=== PATIENT | female | born 1975 ===

== ENCOUNTER 2017-02-11 19:48 | Inpatient (IN) | payer MEDICAID ==
[2017-02-11] MEDS ORDERED: Sodium Chloride 0.9% 1,000 ML IV SCH (20:45)
[2017-02-11 20:46] LABS: ADD MANUAL DIFF? NO
[2017-02-11 20:48] LABS: BASO # 0.04 K/mm3 (0.0-2.0); BASO % 0.6 % (0.0-3.0); EOS # 0.6 (0.0-0.7); EOS % 8.8 % (1.5-5.0); GRAN # 2.67 (1.4-6.5); GRAN % 36.7 % (50.0-68.0); HEMATOCRIT 32.6 % (36.0-48.0); LYMPH # 3.3 (1.2-3.4); LYMPH % 45.1 % (22.0-35.0); MEAN CELL VOLUME 88.3 fL (80.0-105.0); MEAN CORPUSCULAR HEMOGLOBIN 29.3 pg (25.0-35.0); MEAN CORPUSCULAR HGB CONC 33.1 g/dl (31.0-37.0); MEAN PLATELET VOLUME 9.7 fl (7.0-11.0); MONO # 0.6 (0.1-0.6); MONO % 8.8 % (1.0-6.0); PLATELET COUNT 265 10^3/uL (120.0-450.0); RED CELL DISTRIBUTION WIDTH 14.6 % (11.5-14.5); WHITE BLOOD COUNT 7.3 10^3/ul (4.5-11.0)
[2017-02-11 21:01] LABS: INR 0.99 (0.93-1.08)
[2017-02-11 21:08] LABS: ALB/GLOB RATIO 1.1 (1.1-1.8); ALKALINE PHOSPHATASE 92 U/L (38-133); ALT/SGPT 21 U/L (7-56); AMYLASE 116 U/L (35-125); AST/SGOT 24 U/L (15-39); BILIRUBIN,TOTAL 0.2 mg/dL (0.2-1.3); BLOOD UREA NITROGEN 15 mg/dL (7-21); CALCIUM 8.7 mg/dL (8.4-10.5); CARBON DIOXIDE 27 mmol/L (21-33); CHLORIDE 107 mmol/L (98-107); GFR AFRICAN-AMERICAN > 60; GLUCOSE,RANDOM 106 mg/dL (70-110); LIPASE 95 U/L (23-300); POTASSIUM 3.7 mmol/L (3.6-5.0); SODIUM 139 mmol/L (132-148); TOTAL PROTEIN 7.1 g/dL (5.8-8.3)
[2017-02-11 21:23] LABS: TROPONIN I < 0.01 ng/mL
--- NOTE | 2017-02-11 22:59 | CT ---
EXAM: CT Abdomen and Pelvis Without Intravenous Contrast CLINICAL HISTORY: 41 years old, female; Pain; Abdominal pain; Acute; Additional info: Abd pain TECHNIQUE: Axial computed tomography images of the abdomen and pelvis without intravenous contrast. This CT exam was performed using one or more of the following dose reduction techniques: automated exposure control, adjustment of the mA and/or kV according to patient size, and/or use of iterative reconstruction technique. Coronal and sagittal reformatted images were created and reviewed. COMPARISON: No relevant prior studies available. FINDINGS: Limitations: Lack of intravenous contrast. Streak artifact - mild. Lower thorax: No acute findings. ABDOMEN: Liver: Unremarkable. Gallbladder and bile ducts: No calcified stones. No ductal dilation. Pancreas: Unremarkable. No ductal dilation. Spleen: No splenomegaly. Adrenals: No mass. Kidneys and ureters: No renal calculi. No hydronephrosis. Stomach and bowel: Fluid within small bowel. Fluid/loose stool within colon. No definite mural thickening. No obstruction. Appendix: Normal caliber. No inflammation. PELVIS: Bladder: Unremarkable. No stones. Reproductive: Unremarkable as visualized. ABDOMEN and PELVIS: Intraperitoneal space: No significant fluid collection. No free air. Bones/joints: Postsurgical changes of spine. Melorheostosis of LEFT femur. Mild scoliosis. No acute fracture. Soft tissues: Unremarkable. Vasculature: Unremarkable. No abdominal aortic aneurysm. Lymph nodes: No pathologically enlarged lymph nodes. IMPRESSION: 1. Fluid/loose stool within bowel may suggest diarrhea illness. 2. Incidental/non-acute findings are described above.
--- NOTE | 2017-02-11 23:43 | ED PDOC ---
Arrival/HPI - General Chief Complaint: GI Problem Time Seen by Provider: 02/11/17 20:11 Historian: Patient - History of Present Illness Narrative History of Present Illness (Text): 02/11/17 23:41 Elidia Arceo is a 41 year old female who presents to the emergency department for evaluation of 1 day duration of abdominal pain associated with bloody stools. Denies any fever, chills, headache, dizziness, chest pain, shortness of breath, nausea, vomiting, diarrhea, urinary symptoms, or any other complaints at this time. Time/Duration: Other (1 day ) Symptom Onset: Gradual Severity Level: Mild Activities at Onset: Light Past Medical History - Provider Review Nursing Documentation Reviewed: Yes - Infectious Disease Hx of Infectious Diseases: None - Cardiac Hx Cardiac Disorders: No - Pulmonary Hx Respiratory Disorders: No - Neurological Hx Neurological Disorder: No - HEENT Hx HEENT Disorder: No - Renal Hx Renal Disorder: No - Endocrine/Metabolic Hx Endocrine Disorders: No - Hematological/Oncological Hx Blood Disorders: No - Integumentary Hx Dermatological Disorder: No - Musculoskeletal/Rheumatological Hx Musculoskeletal Disorders: No - Gastrointestinal Hx Gastrointestinal Disorders: No - Genitourinary/Gynecological Hx Genitourinary Disorders: No - Psychiatric Hx Depression: Yes Hx Substance Use: No - Surgical History Other/Comment: spinal fusion - Anesthesia Hx Anesthesia: Yes Hx Anesthesia Reactions: No Hx Malignant Hyperthermia: No Family/Social History - Physician Review Nursing Documentation Reviewed: Yes Family/Social History: No Known Family HX Smoking Status: Never Smoked Hx Alcohol Use: No Hx Substance Use: No Allergies/Home Meds Allergies/Adverse Reactions: Allergies oxycodone Allergy (Verified 11/19/15 00:12) RASH Home Medications: Home Meds Medication Instructions Recorded Confirmed Cyclobenzaprine [Flexeril] 10 mg PO PRN PRN 11/19/15 11/19/15 HYDROmorphone [Dilaudid] 4 mg PO PRN PRN 11/19/15 11/19/15 traMADol [Ultram] 50 mg PO PRN PRN 11/19/15 11/19/15 Review of Systems - Physician Review All systems were reviewed & negative as marked: Yes - Review of Systems Constitutional: Normal. absent: Fatigue, Fevers Respiratory: Normal. absent: SOB, Cough, Sputum Cardiovascular: Normal. absent: Chest Pain, Palpitations Gastrointestinal: Abdominal Pain, Hematochezia. absent: Diarrhea, Nausea, Vomiting, Hematemesis Genitourinary Female: Normal Neurological: Normal Psychiatric: Normal Physical Exam Vital Signs Reviewed: Yes Vital Signs Temp Pulse Resp BP Pulse Ox 02/12/17 03:00 66 16 99 02/12/17 01:01 69 16 97 02/11/17 21:56 67 14 111/69 100 02/11/17 19:54 97.9 F 97 H 18 92/62 L 98 Temperature: Afebrile Blood Pressure: Normal Pulse: Regular Respiratory Rate: Normal Appearance: Positive for: Well-Appearing, Non-Toxic, Comfortable Pain Distress: None Mental Status: Positive for: Alert and Oriented X 3 - Systems Exam Head: Present: Atraumatic, Normocephalic Pupils: Present: PERRL Conjunctiva: Present: Normal Mouth: Present: Moist Mucous Membranes Respiratory/Chest: Present: Clear to Auscultation, Good Air Exchange. No: Respiratory Distress, Accessory Muscle Use Cardiovascular: Present: Regular Rate and Rhythm, Normal S1, S2. No: Murmurs Abdomen: Present: Normal Bowel Sounds. No: Tenderness, Distention, Peritoneal Signs, Rebound, Guarding Upper Extremity: Present: Normal Inspection. No: Cyanosis, Edema Lower Extremity: Present: Normal Inspection. No: Edema Neurological: Present: GCS=15, CN II-XII Intact, Speech Normal, Motor Func Grossly Intact, Normal Sensory Function Skin: Present: Warm, Dry, Normal Color. No: Rashes Psychiatric: Present: Alert, Oriented x 3, Normal Insight, Normal Concentration Medical Decision Making ED Course and Treatment: 02/11/17 23:44 Impression: A 41 year old female who presents to the emergency department complaining of abdominal pain associated with bloody stools for past day. Plan: -- EKG -- CT abdomen/ pelvis -- Labs, cardiac enzymes -- CT abdomen pelvis -- IV Fluids -- POC urine -- Reassess and disposition Progress Notes: 02/12/17 01:54 EKG reviewed by me: NSR @ 85 bpm. Normal axis. normal interval. CT abdomen pelvis results reviewed FINDINGS: Limitations: Lack of intravenous contrast. Streak artifact - mild. Lower thorax: No acute findings. ABDOMEN: Liver: Unremarkable. Gallbladder and bile ducts: No calcified stones. No ductal dilation. Pancreas: Unremarkable. No ductal dilation. Spleen: No splenomegaly. Adrenals: No mass. Kidneys and ureters: No renal calculi. No hydronephrosis. Stomach and bowel: Fluid within small bowel. Fluid/loose stool within colon. No definite mural thickening. No obstruction. Appendix: Normal caliber. No inflammation. PELVIS: Bladder: Unremarkable. No stones. Reproductive: Unremarkable as visualized. ABDOMEN and PELVIS: Intraperitoneal space: No significant fluid collection. No free air. Bones/joints: Postsurgical changes of spine. Melorheostosis of LEFT femur. Mild scoliosis. No acute fracture. Soft tissues: Unremarkable. Vasculature: Unremarkable. No abdominal aortic aneurysm. Lymph nodes: No pathologically enlarged lymph nodes. IMPRESSION: 1. Fluid/loose stool within bowel may suggest diarrhea illness. 2. Incidental/non-acute findings are described above. 02/12/17 01:[address] Santa who is aware and agrees with the plan to observe patient at telemetry for lower GI hemorrhage. Accepts patient under hospitalist service. patient evaluated bedside by medical sales consultant. - Lab Interpretations Lab Results: 02/11/17 20:31 02/11/17 20:31 Lab Results 02/11/17 21:05: Blood Type Confirm O POSITIVE 02/11/17 20:31: Blood Type O POSITIVE, Antibody Screen Negative, BBK History Checked No verified bt 02/11/17 20:31: Sodium 139, Potassium 3.7, Chloride 107, Carbon Dioxide 27, Anion Gap 9 L, BUN 15, Creatinine 0.7, Est GFR ( Amer) > 60, Est GFR (Non -Af Amer) > 60, Random Glucose 106, Calcium 8.7, Total Bilirubin 0.2, AST 24, ALT 21, Alkaline Phosphatase 92, Lactate Dehydrogenase 440, Total Creatine Kinase 97, Troponin I < 0.01, Total Protein 7.1, Albumin 3.7, Globulin 3.4, Albumin/Globulin Ratio 1.1, Amylase 116, Lipase 95 02/11/17 20:31: PT 10.7, INR 0.99, APTT 25.0 02/11/17 20:31: WBC 7.3, RBC 3.69, Hgb 10.8 L, Hct 32.6 L, MCV 88.3, MCH 29.3, MCHC 33.1, RDW 14.6 H, Plt Count 265, MPV 9.7, Gran % 36.7 L, Lymph % (Auto) 45.1 H, Collier % (Auto) 8.8 H, Eos % (Auto) 8.8 H, Baso % (Auto) 0.6, Gran # 2.67 , Lymph # 3.3, Collier # 0.6, Eos # 0.6, Baso # 0.04 I have reviewed the lab results: Yes - RAD Interpretation Radiology Orders: 02/11/17 21:13 ABD & PELVIS W/O PO OR IV CONT [CT] Stat Mold Repairer: Radiologist - EKG Interpretation Interpreted by ED Physician: Yes Type: 12 lead EKG - Medication Orders Current Medication Orders: Acetaminophen (Tylenol 325mg Tab) 650 mg PO Q6H PRN PRN Reason: Fever >100.4 F Pantoprazole Sodium (Protonix 40mg Ivpb) 40 mg in 100 mls @ 20 mls/hr IVPB .Q5H [facility] Last Admin: 02/12/17 18:08 Dose: 20 mls/hr Sodium Chloride (Sodium Chloride 0.9%) 1,000 mls @ 150 mls/hr IV .[id number] [facility] Last Admin: 02/12/17 18:09 Dose: 150 mls/hr Tramadol HCl (Ultram) 50 mg PO Q6 PRN PRN Reason: Pain, moderate (4-7) Discontinued Medications Sodium Chloride (Sodium Chloride 0.9%) 1,000 mls @ 80 mls/hr IV .[id number] [facility] Last Admin: 02/11/17 23:17 Dose: 80 mls/hr Pantoprazole Sodium (Protonix Inj) 40 mg IVP ONCE STA Stop: 02/12/17 00:52 Last Admin: 02/12/17 01:43 Dose: 40 mg Pantoprazole Sodium (Protonix Inj) 40 mg IVP STAT STA Stop: 02/12/17 01:22 Last Admin: 02/12/17 01:45 Dose: 40 mg - Scribe Statement The provider has reviewed the documentation as recorded by the Asya Whyte Provider Attestation: Provider Scribe Attestation: All medical record entries made by the Philibbaljinder were at my direction and personally dictated by me. I have reviewed the chart and agree that the record accurately reflects my personal performance of the history, physical exam, medical decision making, and the department course for this patient. I have also personally directed, reviewed, and agree with the discharge instructions and disposition. Disposition/Present on Arrival - Present on Arrival Any Indicators Present on Arrival: No History of DVT/PE: No History of Uncontrolled Diabetes: No Urinary Catheter: No History of Decub. Ulcer: No History Surgical Site Infection Following: None - Disposition Have Diagnosis and Disposition been Completed?: Yes Diagnosis: Lower gastrointestinal bleeding Disposition: HOSPITALIZED Disposition Time: 01:00 Condition: FAIR
--- NOTE | 2017-02-12 01:37 | CP.PCM.HP ---
<NoramliyRod martinez - Last Filed: 02/12/17 01:33> History of Present Illness - History of Present Illness History of Present Illness: This Pt is a 41yo [place] F who has a PMHx of Spinal Fusion from severe scoliosis who is coming to the hospital for a 1d history of BRBPR. The patient states that she has had 3 bloody bowel movements that have filled the toilet bowl today. The first one was concerning, but she decided to come to the hospital after the second one because she started to feel palpitations and felt dizzy. This has never happened to her before. She denies any current SNELL, dizziness, double vision, Cp, Sob, abdominal pain, N/V/D, dysuria/freq/urg, blood per vagina, lower extremity pain/swelling, fevers/chills. The patient had her period one year ago, and has not had it since. Meds: Cycobenzaprine, Ibuprofen 800mg TID Allergies: Oxycodone Surgeries: Spinal Fusion 2014, Social: lives at home, takes care of young daughter, good social support FamHx: Mom DM, Father "stomach issues" and cancer, grandfather cancer, uncle cancer In the ED the patient had a HbG of 10.8 (one year ago 11.8). BUN WNL. patient would not allow us to pass NGT to assess for bleeding in stomach. BM was witnessed to fill toilet bowl with blood here in the ED. The patient was started on protonix drip; GI consult was placed to Dr. Vidal; patient will be admitted to telemetry. Present on Admission - Present on Admission Any Indicators Present on Admission: No History of DVT/PE: No History of Uncontrolled Diabetes: No Urinary Catheter: No Decubitus Ulcer Present: No Review of Systems - Review of Systems All systems: reviewed and no additional remarkable complaints except Past Patient History - Infectious Disease Hx of Infectious Diseases: None - Past Social History Smoking Status: Never Smoked - CARDIAC Hx Cardiac Disorders: No - PULMONARY Hx Respiratory Disorders: No - NEUROLOGICAL Hx Neurological Disorder: No - HEENT Hx HEENT Problems: No - RENAL Hx Chronic Kidney Disease: No - ENDOCRINE/METABOLIC Hx Endocrine Disorders: No - HEMATOLOGICAL/ONCOLOGICAL Hx Blood Disorders: No - INTEGUMENTARY Hx Dermatological Problems: No - MUSCULOSKELETAL/RHEUMATOLOGICAL Hx Musculoskeletal Disorders: No - GASTROINTESTINAL Hx Gastrointestinal Disorders: No - GENITOURINARY/GYNECOLOGICAL Hx Genitourinary Disorders: No - PSYCHIATRIC Hx Depression: Yes Hx Substance Use: No - SURGICAL HISTORY Other/Comment: spinal fusion - ANESTHESIA Hx Anesthesia: Yes Hx Anesthesia Reactions: No Hx Malignant Hyperthermia: No Meds Allergies/Adverse Reactions: Allergies Allergy/AdvReac Type Severity Reaction Status Date / Time oxycodone Allergy RASH Verified 11/19/15 00:12 Physical Exam - Constitutional Appears: Non-toxic - Head Exam Head Exam: ATRAUMATIC - Eye Exam Eye Exam: EOMI, Normal appearance, PERRL. absent: Scleral icterus Pupil Exam: PERRL - ENT Exam ENT Exam: Mucous Membranes Moist - Neck Exam Neck exam: Positive for: Full Rom. Negative for: Lymphadenopathy - Respiratory Exam Respiratory Exam: Clear to Auscultation Bilateral, NORMAL BREATHING PATTERN. absent: Rales, Rhonchi, Wheezes - Cardiovascular Exam Cardiovascular Exam: REGULAR RHYTHM, +S1, +S2 - GI/Abdominal Exam GI & Abdominal Exam: Hyperactive Bowel Sounds, Soft. absent: Normal Bowel Sounds, Organomegaly, Pulsatile Mass, Rebound, Rigid, Tenderness - Rectal Exam Rectal Exam: Deferred - Extremities Exam Extremities exam: Positive for: full ROM, normal inspection. Negative for: calf tenderness, pedal edema - Back Exam Back exam: NORMAL INSPECTION. absent: CVA tenderness (L), CVA tenderness (R) - Neurological Exam Neurological exam: Alert, CN II-XII Intact, Normal Gait, Oriented x3, Reflexes Normal - Psychiatric Exam Psychiatric exam: Normal Affect, Normal Mood - Skin Skin Exam: Warm Results - Vital Signs Recent Vital Signs: Last Vital Signs Temp 97.9 F 02/11/17 19:54 Pulse 69 02/12/17 01:01 Resp 16 02/12/17 01:01 BP 111/69 02/11/17 21:56 Pulse Ox 97 02/12/17 01:01 - Labs Result Diagrams: 02/11/17 20:31 02/11/17 20:31 Assessment & Plan - Assessment and Plan (Free Text) Assessment: 41yo F admitted for GI bleed GI Bleed -Protonix Drip -GI consult; Dr. Vidal placed; appreciate Recs -Telemetry -Type and Screen ordered; transfuse if Hemoglobin drops below 7 or continues to have gross melena -bleeding scan ordered, f/u results -d/c ibuprofen, as it can cause GI bleeding. Patient has been on 800mg TID for 2 years now -VSS stable; no tachycardia, BUN WNL; will continue to monitor CBC Q4H Proph protonix drip SCD; anticoag contraindicated due to active bleed NPO due to possible procedures case discussed and seen with. Dr Kiet Robison PGY1 Night Float Resident Decision To Admit - Pt Status Changed To: Hospital Disposition Of: Inpatient Admission - Admit Certification Admit to Inpatient:: After my assessment, the patient will require hospitalization for at least two midnights. This is because of the severity of symptoms shown, intensity of services needed, and/or the medical risk in this patient being treated as an outpatient. - . Bed Request Type: Telemetry Admitting Physician: Fortino Santa <Fortino Santa - Last Filed: 02/24/17 20:46> Results - Vital Signs Recent Vital Signs: Last Vital Signs Temp 98.6 F 02/14/17 12:58 Pulse 71 02/14/17 12:58 Resp 21 02/14/17 12:58 BP 128/87 02/14/17 12:58 Pulse Ox 100 02/14/17 11:19 - Labs Result Diagrams: 02/14/17 12:15 02/14/17 12:15 Attending/Attestation - Attestation I have personally seen and examined this patient.: Yes I have fully participated in the care of the patient.: Yes I have reviewed all pertinent clinical information: Yes
[2017-02-12] MEDS: Pantoprazole 40mg/100ml IVPB 40 MG/100 ML BAG IVPB SCH ×5 (03:56→21:30)
[2017-02-12] MEDS: Sodium Chloride 0.9% 1,000 ML IV SCH ×3 (04:10→21:30)
[2017-02-12 07:13] LABS: HEMATOCRIT 28.8 % (36.0-48.0); MEAN CELL VOLUME 87.8 fL (80.0-105.0); MEAN PLATELET VOLUME 9.8 fl (7.0-11.0); RED CELL DISTRIBUTION WIDTH 14.8 % (11.5-14.5); WHITE BLOOD COUNT 7.9 10^3/ul (4.5-11.0)
[2017-02-12 07:25] LABS: ALKALINE PHOSPHATASE 91 U/L (38-133); ALT/SGPT 26 U/L (7-56); AST/SGOT 22 U/L (15-39); BILIRUBIN,TOTAL 0.1 mg/dL (0.2-1.3); BLOOD UREA NITROGEN 12 mg/dL (7-21); CALCIUM 8.2 mg/dL (8.4-10.5); CARBON DIOXIDE 24 mmol/L (21-33); CHLORIDE 110 mmol/L (98-107); GFR AFRICAN-AMERICAN > 60; GLUCOSE,RANDOM 75 mg/dL (70-110); SODIUM 140 mmol/L (132-148); TOTAL PROTEIN 6.4 g/dL (5.8-8.3)
[2017-02-12 07:25] LABS: INR 1.01 (0.93-1.08)
--- NOTE | 2017-02-12 08:38 | CON ---
DATE: 02/12/2017 I examined the patient this morning. She is a 41-year-old female with a past medical history of a spinal fusion with scoliosis, admitted after having bloody-type bowel movement over a 1 -day time period. Apparently, she started feeling palpitations and felt mildly dizzy after she saw the blood in the toilet bowl. She initially had abdominal pain in the epigastric as well as the left lower quadrant which now has dissipated. She does not feel nausea. The patient also denied any previous episodes of hematemesis or rectal bleeding, dysphagia, severe esophageal reflux or epigastric pain. Note that the patient has been taking ibuprofen 800 mg 3 times daily for roughly 6 months or more. She has an ALLERGY TO OXYCODONE. At the current time point, the patient does not have any complaints. Last episode of blood passed per rectum was in the ER at time of admission. PHYSICAL EXAMINATION: VITAL SIGNS: I reviewed this patient's vital signs. HEENT: Noncontributory. LUNGS: Clear to auscultation. HEART: Regular rhythm. ABDOMEN: Significant for being soft. No tenderness elicited anywhere. She has normal bowel sounds. I reviewed this patient's laboratory data. H and H significant for with a platelet count of 265. INR is within normal limits. Chemistry noncontributory. Review of the CBC, on further notice, the patient has an irregular differential. Note the CBC differential. OVERALL ASSESSMENT: This is a 41-year-old female admitted with complaints of 1 day of rectal bleeding. Note that I reviewed the picture of the stool the patient took which appears to be melanotic in type. Although there may be some aspect of lower gastrointestinal bleed in this case, I think based on patient's history of ibuprofen 800 t.i.d. for nearly a half a year, best bet would probably be an ulcer in the gastrointestinal tract somewhere. I will therefore schedule the patient for upper endoscopy tomorrow if the patient is agreeable. At least for the current time point, continue on the Protonix as ordered. She is also on IV fluids. Note that she is scheduled for a bleeding scan; however, due to the sporadic type of bleeding that she has experienced, I would doubt the bleeding scan will be contributory. The upper endoscopy will be scheduled for roughly 9:00 tomorrow morning. Maintain the patient n.p.o. for now. Gucci Vidal DO, PhD cc: [id number] TT: 02/12/2017 08:37:48 Confirmation # [id number] Dictation # [id number] MTDD
[2017-02-12 10:46] LABS: HEMATOCRIT 26.7 % (36.0-48.0); MEAN CORPUSCULAR HGB CONC 32.6 g/dl (31.0-37.0); MEAN PLATELET VOLUME 9.7 fl (7.0-11.0); RED CELL DISTRIBUTION WIDTH 14.8 % (11.5-14.5); WHITE BLOOD COUNT 9.8 10^3/ul (4.5-11.0)
[2017-02-12 11:15] LABS: TROPONIN I < 0.01 ng/mL
--- NOTE | 2017-02-12 11:32 | CP.PCM.CON ---
<BryanJoeln - Last Filed: 02/12/17 12:34> History of Present Illness - History of Present Illness History of Present Illness: Critical Care Consult Note for Dr. Mullins CC: GI Bleed X 1 day HPI: This is a 41F with a PMH significant for chronic pain secondary to a spinal fusion. She has been taking 800mg Ibuprofen 3Xdaily for the past 5 months. Yesterday she reports a painful BM, which was grossly bloody with dark clots. She reports this is the first time she has had such an experience. She reports that she developed nausea after the hematochezia. She reports generalized abdominal pain. She denies fevers or chills at home however she does admit to dizziness and fatigue. PMH:See above PSH: Spinal Fusion 2014, Social: Denies tobacco, etoh, drugs Meds: Cycobenzaprine, Ibuprofen 800mg TID All: Oxycodone Review of Systems - Review of Systems All systems: reviewed and no additional remarkable complaints except Past Patient History - Infectious Disease Hx of Infectious Diseases: None - Past Social History Smoking Status: Never Smoked - CARDIAC Hx Cardiac Disorders: No - PULMONARY Hx Respiratory Disorders: No - NEUROLOGICAL Hx Neurological Disorder: No - HEENT Hx HEENT Problems: No - RENAL Hx Chronic Kidney Disease: No - ENDOCRINE/METABOLIC Hx Endocrine Disorders: No - HEMATOLOGICAL/ONCOLOGICAL Hx Blood Disorders: No - INTEGUMENTARY Hx Dermatological Problems: No - MUSCULOSKELETAL/RHEUMATOLOGICAL Hx Falls: No - GASTROINTESTINAL Hx Gastrointestinal Disorders: No - GENITOURINARY/GYNECOLOGICAL Hx Genitourinary Disorders: No - PSYCHIATRIC Hx Depression: Yes Hx Substance Use: No - SURGICAL HISTORY Hx Surgeries: Yes Other/Comment: Hx of spinal fusion from severe scoliosis - ANESTHESIA Hx Anesthesia: Yes Hx Anesthesia Reactions: No Hx Malignant Hyperthermia: No Meds Allergies/Adverse Reactions: Allergies Allergy/AdvReac Type Severity Reaction Status Date / Time oxycodone Allergy RASH Verified 11/19/15 00:12 - Medications Medications: Current Medications Acetaminophen (Tylenol 325mg Tab) 650 mg PO Q6H PRN PRN Reason: Fever >100.4 F Pantoprazole Sodium (Protonix 40mg Ivpb) 40 mg in 100 mls @ 20 mls/hr IVPB .Q5H REAL Last Admin: 02/12/17 06:43 Dose: Not Given Sodium Chloride (Sodium Chloride 0.9%) 1,000 mls @ 150 mls/hr IV .Q6H40M REAL Last Admin: 02/12/17 04:10 Dose: 150 mls/hr Tramadol HCl (Ultram) 50 mg PO Q6 PRN PRN Reason: Pain, moderate (4-7) Physical Exam - Constitutional Appears: Non-toxic, No Acute Distress - Head Exam Head Exam: ATRAUMATIC, NORMOCEPHALIC - Eye Exam Eye Exam: EOMI - ENT Exam ENT Exam: Mucous Membranes Moist - Respiratory Exam Respiratory Exam: Clear to Auscultation Bilateral, NORMAL BREATHING PATTERN - Cardiovascular Exam Cardiovascular Exam: REGULAR RHYTHM, +S1, +S2 - GI/Abdominal Exam GI & Abdominal Exam: Soft, Tenderness. absent: Distended, Firm, Guarding, Hernia, Rebound, Rigid - Extremities Exam Extremities exam: Positive for: normal inspection, pedal pulses present - Neurological Exam Neurological exam: Alert, Oriented x3 - Psychiatric Exam Psychiatric exam: Normal Affect, Normal Mood - Skin Skin Exam: Dry, Intact Additional comments: Large red georgina on medial proximal arm Results - Vital Signs Recent Vital Signs: Last Vital Signs Temp 98.9 F 02/12/17 06:00 Pulse 75 02/12/17 06:00 Resp 22 02/12/17 06:00 BP 120/90 02/12/17 06:00 Pulse Ox 97 02/12/17 06:00 - Labs Result Diagrams: 02/12/17 10:43 02/12/17 05:30 Labs: Laboratory Results - last 24 hr 02/12/17 02/12/17 02/12/17 05:30 05:30 06:30 WBC 7.9 RBC 3.28 L Hgb 9.5 L Hct 28.8 L MCV 87.8 MCH 29.0 MCHC 33.0 RDW 14.8 H Plt Count 238 MPV 9.8 PT 10.9 INR 1.01 Sodium 140 Potassium 4.0 Chloride 110 H Carbon Dioxide 24 Anion Gap 10 BUN 12 Creatinine 0.6 Est GFR ( Amer) > 60 Est GFR (Non-Af Amer) > 60 Random Glucose 75 Calcium 8.2 L Total Bilirubin 0.1 L AST 22 ALT 26 Alkaline Phosphatase 91 Lactate Dehydrogenase Total Creatine Kinase Troponin I Total Protein 6.4 Albumin 3.2 Globulin 3.1 Albumin/Globulin Ratio 1.0 L 02/12/17 02/12/17 10:43 10:43 WBC 9.8 D RBC 3.00 L Hgb 8.7 L Hct 26.7 L MCV 89.0 MCH 29.0 MCHC 32.6 RDW 14.8 H Plt Count 240 MPV 9.7 PT INR Sodium Potassium Chloride Carbon Dioxide Anion Gap BUN Creatinine Est GFR ( Amer) Est GFR (Non-Af Amer) Random Glucose Calcium Total Bilirubin AST ALT Alkaline Phosphatase Lactate Dehydrogenase 365 Total Creatine Kinase 74 Troponin I < 0.01 Total Protein Albumin Globulin Albumin/Globulin Ratio - Imaging and Cardiology CT scan - abdomen Status: Image reviewed by me, Report reviewed by me Assessment & Plan - Assessment and Plan (Free Text) Assessment: This is a 41F with a history of chronic high dose NSAID usage who presents with a GI Bleed. Patient is currently stable, non tachycardic, with stable blood pressure, appears comfortable. Patient denies bloody bowel movements today. If patient's hemodynamics change for the worse please call the ICU for re- evaluation. Recommend GI evaluation with possible scope. Recommend PPI, D/C NSAIDS, Continue IV fluids D/W Dr. Susanna Adams PGY-1 <Susanna JORDAN,Soy Manuel - Last Filed: 02/12/17 14:47> Meds - Medications Medications: Current Medications Acetaminophen (Tylenol 325mg Tab) 650 mg PO Q6H PRN PRN Reason: Fever >100.4 F Pantoprazole Sodium (Protonix 40mg Ivpb) 40 mg in 100 mls @ 20 mls/hr IVPB .Q5H COUNT [facility]CLUDES [facility] Last Admin: 02/12/17 06:43 Dose: Not Given Sodium Chloride (Sodium Chloride 0.9%) 1,000 mls @ 150 mls/hr IV .Q6H40M COUNT INCLUDES THE [facility] Last Admin: 02/12/17 04:10 Dose: 150 mls/hr Tramadol HCl (Ultram) 50 mg PO Q6 PRN PRN Reason: Pain, moderate (4-7) Results - Vital Signs Recent Vital Signs: Last Vital Signs Temp 98.5 F 02/12/17 12:00 Pulse 78 02/12/17 12:00 Resp 18 02/12/17 12:00 BP 104/69 02/12/17 12:00 Pulse Ox 97 02/12/17 06:00 - Labs Result Diagrams: 02/12/17 10:43 02/12/17 05:30 Labs: Laboratory Results - last 24 hr 02/12/17 02/12/17 02/12/17 05:30 05:30 06:30 WBC 7.9 RBC 3.28 L Hgb 9.5 L Hct 28.8 L MCV 87.8 MCH 29.0 MCHC 33.0 RDW 14.8 H Plt Count 238 MPV 9.8 PT 10.9 INR 1.01 Sodium 140 Potassium 4.0 Chloride 110 H Carbon Dioxide 24 Anion Gap 10 BUN 12 Creatinine 0.6 Est GFR ( Amer) > 60 Est GFR (Non-Af Amer) > 60 POC Glucose (mg/dL) Random Glucose 75 Calcium 8.2 L Total Bilirubin 0.1 L AST 22 ALT 26 Alkaline Phosphatase 91 Lactate Dehydrogenase Total Creatine Kinase Troponin I Total Protein 6.4 Albumin 3.2 Globulin 3.1 Albumin/Globulin Ratio 1.0 L 02/12/17 02/12/17 02/12/17 10:34 10:43 10:43 WBC 9.8 D RBC 3.00 L Hgb 8.7 L Hct 26.7 L MCV 89.0 MCH 29.0 MCHC 32.6 RDW 14.8 H Plt Count 240 MPV 9.7 PT INR Sodium Potassium Chloride Carbon Dioxide Anion Gap BUN Creatinine Est GFR ( Amer) Est GFR (Non-Af Amer) POC Glucose (mg/dL) 112 H Random Glucose Calcium Total Bilirubin AST ALT Alkaline Phosphatase Lactate Dehydrogenase 365 Total Creatine Kinase 74 Troponin I < 0.01 Total Protein Albumin Globulin Albumin/Globulin Ratio 02/12/17 11:39 WBC RBC Hgb Hct MCV MCH MCHC RDW Plt Count MPV PT INR Sodium Potassium Chloride Carbon Dioxide Anion Gap BUN Creatinine Est GFR ( Amer) Est GFR (Non-Af Amer) POC Glucose (mg/dL) 101 Random Glucose Calcium Total Bilirubin AST ALT Alkaline Phosphatase Lactate Dehydrogenase Total Creatine Kinase Troponin I Total Protein Albumin Globulin Albumin/Globulin Ratio Attending/Attestation - Attestation I have personally seen and examined this patient.: Yes I have fully participated in the care of the patient.: Yes I have reviewed all pertinent clinical information: Yes Notes (Text): 02/12/17 14:45 41 y/o F w/ Likely Upper GI bleed secondary to NSAID use and likely ulcers. No overt blood loss in the past 36 hrs. Kept NPO On PPI drip Awaiting Gi evaluation for EGD. Keep HGB >7 Platelets> 50 K Does claim to use 2400mg of Advil x 5 months . Currently hemodynamics are stable and patient is void of any CP, SOB or dizziness. Please call if patient worsens and needs ICU monitoring, cc time 55 min
--- NOTE | 2017-02-12 13:32 | NM ---
PROCEDURE: Nuclear medicine gastrointestinal bleeding scan. HISTORY: GI bleed COMPARISON: None available. TECHNIQUE: 4 cc of patient blood was withdrawn and mixed with 21 mCi of technetium ultra tagged. Images of the abdomen and pelvis were obtained in the anterior and posterior projection at 1 min intervals over a period of 45 min. FINDINGS: No abnormal extravasation of tracer was observed throughout the exam to indicate active bleeding within or outside the gastrointestinal tract. Physiologic activity was seen in the heart, liver, spleen and blood vessels. IMPRESSION: No evidence of active gastrointestinal bleeding.
--- NOTE | 2017-02-12 14:31 | CARD ---
APPROVED REPORT EKG Measurement Heart [id number] [place] [id number] <Conclusion> Normal sinus rhythm Normal ECG
--- NOTE | 2017-02-12 15:22 | CP.PCM.PN ---
Subjective - Date & Time of Evaluation Date of Evaluation: 02/12/17 Time of Evaluation: 10:33 - Subjective Subjective: Rapid response note Patient is a 41yo female with history of spinal fusion that was admitted for GI bleed for which a rapid response was called at 10:33am. Per nursing, patient attempted to stand up when she became lightheaded and almost passed out. Per nursing, she was unresponsive and an [employer] was called. On arrival, patient was alert and oriented x3, answering questions appropriately. Her vitals were as follows: BP: 98/65, HR 74bpm, RR 16, O2sat 99% on NC. EKG revealed sinus rhythm at 74bpm with no acute ST-T wave changes. Stat labs were ordered. NS IVF was administered at 150cc/hr. Primary team notified. Patient was hemodynamically stable. Denied chest pain, palpitations, SOB. Objective - Vital Signs/Intake and Output Vital Signs (last 24 hours): Temp Pulse Resp BP Pulse Ox 98.5 F 78 18 104/69 97 02/12/17 12:00 02/12/17 12:00 02/12/17 12:00 02/12/17 12:00 02/12/17 06:00 Intake and Output: 02/12/17 02/12/17 06:59 18:59 Intake Total 510 Output Total 100 Balance 410 - Medications Medications: Current Medications Acetaminophen (Tylenol 325mg Tab) 650 mg PO Q6H PRN PRN Reason: Fever >100.4 F Pantoprazole Sodium (Protonix 40mg Ivpb) 40 mg in 100 mls @ 20 mls/hr IVPB .Q5H [facility] Last Admin: 02/12/17 06:43 Dose: Not Given Sodium Chloride (Sodium Chloride 0.9%) 1,000 mls @ 150 mls/hr IV .Q6H40M [facility] Last Admin: 02/12/17 04:10 Dose: 150 mls/hr Tramadol HCl (Ultram) 50 mg PO Q6 PRN PRN Reason: Pain, moderate (4-7) - Labs Labs: 02/12/17 10:43 02/12/17 05:30 PT 10.9 Seconds (9.9-11.8) 02/12/17 06:30 INR 1.01 (0.93-1.08) 02/12/17 06:30 APTT 25.0 Seconds (23.7-30.8) 02/11/17 20:31 - Constitutional Appears: Non-toxic, No Acute Distress - Head Exam Head Exam: ATRAUMATIC, NORMAL INSPECTION, NORMOCEPHALIC - Eye Exam Eye Exam: EOMI, PERRL - ENT Exam ENT Exam: Mucous Membranes Moist - Respiratory Exam Respiratory Exam: Clear to Ausculation Bilateral. absent: Rales, Rhonchi, Wheezes - Cardiovascular Exam Cardiovascular Exam: RRR, +S1, +S2. absent: Gallop, JVD, Rubs, Murmur - GI/Abdominal Exam GI & Abdominal Exam: Soft. absent: Distended, Firm, Guarding, Rigid, Tenderness , Rebound - Extremities Exam Extremities Exam: Normal Inspection. absent: Tenderness - Neurological Exam Neurological Exam: Alert, Awake, Oriented x3 - Psychiatric Exam Psychiatric exam: Normal Affect, Normal Mood - Skin Skin Exam: Dry, Intact, Normal Color, Warm Assessment and Plan - Assessment and Plan (Free Text) Plan: 41yo female with history of scoliosis admitted for GI bleed. [employer] called at 10: 33am -EKG revealed sinus rhythm at 74bpm with no acute ST-T wave changes -Stat CBC, troponin -Hemodynamically stable -Alert and oriented x3 -NS IVF @ 150cc/hr -No overt GI bleed visible -Further treatment as per GI recs Patient seen and case discussed with attending, Dr. Adrianne Mullins
[2017-02-12 16:22] LABS: ADD MANUAL DIFF? NO
[2017-02-12 16:28] LABS: BASO # 0.02 K/mm3 (0.0-2.0); BASO % 0.2 % (0.0-3.0); EOS # 0.3 (0.0-0.7); EOS % 2.4 % (1.5-5.0); GRAN # 7.18 (1.4-6.5); GRAN % 62.5 % (50.0-68.0); HEMATOCRIT 25.1 % (36.0-48.0); LYMPH # 3.4 (1.2-3.4); LYMPH % 29.7 % (22.0-35.0); MEAN CELL VOLUME 88.4 fL (80.0-105.0); MEAN CORPUSCULAR HEMOGLOBIN 28.5 pg (25.0-35.0); MEAN CORPUSCULAR HGB CONC 32.3 g/dl (31.0-37.0); MEAN PLATELET VOLUME 9.5 fl (7.0-11.0); MONO # 0.6 (0.1-0.6); MONO % 5.2 % (1.0-6.0); PLATELET COUNT 246 10^3/uL (120.0-450.0); RED CELL DISTRIBUTION WIDTH 14.8 % (11.5-14.5); WHITE BLOOD COUNT 11.5 10^3/ul (4.5-11.0)
--- NOTE | 2017-02-12 16:41 | CARD ---
APPROVED REPORT EKG Measurement Heart [id number] [place] 122P16 [id number] <Conclusion> Normal sinus rhythm Normal ECG
[2017-02-12 19:47] LABS: ADD MANUAL DIFF? NO
[2017-02-12 19:55] LABS: BASO # 0.02 K/mm3 (0.0-2.0); BASO % 0.2 % (0.0-3.0); EOS # 0.3 (0.0-0.7); EOS % 2.9 % (1.5-5.0); GRAN # 5.45 (1.4-6.5); GRAN % 59.7 % (50.0-68.0); LYMPH # 2.9 (1.2-3.4); LYMPH % 31.4 % (22.0-35.0); MEAN CELL VOLUME 88.2 fL (80.0-105.0); MEAN CORPUSCULAR HEMOGLOBIN 29.4 pg (25.0-35.0); MEAN CORPUSCULAR HGB CONC 33.3 g/dl (31.0-37.0); MEAN PLATELET VOLUME 9.4 fl (7.0-11.0); MONO # 0.5 (0.1-0.6); MONO % 5.8 % (1.0-6.0); PLATELET COUNT 194 10^3/uL (120.0-450.0); RED CELL DISTRIBUTION WIDTH 14.9 % (11.5-14.5); WHITE BLOOD COUNT 9.1 10^3/ul (4.5-11.0)
[2017-02-12] MEDS ORDERED: Sodium Chloride 0.9% 500 ML IV STA (22:10)
[2017-02-13] MEDS: Pantoprazole 40mg/100ml IVPB 40 MG/100 ML BAG IVPB SCH ×5 (02:03→23:09)
[2017-02-13 06:46] LABS: ADD MANUAL DIFF? NO
[2017-02-13 07:06] LABS: BASO # 0.01 K/mm3 (0.0-2.0); BASO % 0.1 % (0.0-3.0); EOS # 0.4 (0.0-0.7); EOS % 5.7 % (1.5-5.0); GRAN # 3.45 (1.4-6.5); GRAN % 49.6 % (50.0-68.0); HEMATOCRIT 28.8 % (36.0-48.0); LYMPH # 2.6 (1.2-3.4); LYMPH % 37.3 % (22.0-35.0); MEAN CELL VOLUME 87.8 fL (80.0-105.0); MEAN CORPUSCULAR HEMOGLOBIN 28.4 pg (25.0-35.0); MEAN CORPUSCULAR HGB CONC 32.3 g/dl (31.0-37.0); MEAN PLATELET VOLUME 9.8 fl (7.0-11.0); MONO # 0.5 (0.1-0.6); MONO % 7.3 % (1.0-6.0); PLATELET COUNT 189 10^3/uL (120.0-450.0); RED CELL DISTRIBUTION WIDTH 14.7 % (11.5-14.5)
[2017-02-13 07:10] LABS: ALKALINE PHOSPHATASE 69 U/L (38-133); ALT/SGPT 28 U/L (7-56); AST/SGOT 18 U/L (15-39); BILIRUBIN,TOTAL 0.5 mg/dL (0.2-1.3); BLOOD UREA NITROGEN 14 mg/dL (7-21); CALCIUM 7.9 mg/dL (8.4-10.5); CARBON DIOXIDE 23 mmol/L (21-33); CHLORIDE 112 mmol/L (98-107); GFR AFRICAN-AMERICAN > 60; GLUCOSE,RANDOM 74 mg/dL (70-110); POTASSIUM 3.5 mmol/L (3.6-5.0); SODIUM 139 mmol/L (132-148); TOTAL PROTEIN 5.3 g/dL (5.8-8.3)
--- NOTE | 2017-02-13 07:19 | PN ---
DATE: 02/13/2017 I examined the patient this morning. She is a 41-year-old female admitted with a near syncopal episode and rectal bleeding. The patient had had 2 small episodes of rectal bleeding last night, a near syncopal episode when going from lying down to sitting and standing at bedside. This resolved nearly spontaneously. She has no complaints of abdominal pain or nausea. I reviewed this case with the nurse on the floor this morning. PHYSICAL EXAMINATION: VITAL SIGNS: I reviewed this patient's vital signs. HEENT: Noncontributory. LUNGS: Clear to auscultation. HEART: Regular rate and rhythm. ABDOMEN: Significant for being soft, nontender. Normal bowel sounds heard. I reviewed the patient's laboratory data. OVERALL ASSESSMENT: This is a 41-year-old female being evaluated for episodes of rectal bleeding which appear to be melanotic according to the patient's cellphone pictures. The patient appears to be hemodynamically stable at the current time point. In preparation for endoscopy, I discussed the procedure including risks, benefits and alternatives, including the risks of hemorrhage and perforation in surgery. The patient was agreeable to the procedure after understanding the discussion above in the presence of one of the nurses on 3 ER and the patient sign the consent for the procedure. At current time point, I will maintain the patient on her current medications. Further input after the endoscopy later on this morning. Gucci Vidal DO, PhD cc: [id number] TT: 02/13/2017 07:18:42 Confirmation # [id number] Dictation # [id number] HURLEY
--- NOTE | 2017-02-13 09:14 | CP.PCM.PN ---
<Jeff Brown - Last Filed: 02/13/17 12:24> Subjective - Date & Time of Evaluation Date of Evaluation: 02/13/17 Time of Evaluation: 09:11 - Subjective Subjective: Patient seen at bedside. She is hemodynamically stable. No melena overnight. Repeat Hgb 7.0. Patient was transfused 3 U PRBC. Hgb now 9.3. Patient will go for EGD this morning. She denies abd pain, n/v, hemoptysis, dizziness. Objective - Vital Signs/Intake and Output Vital Signs (last 24 hours): Temp Pulse Resp BP Pulse Ox 98.4 F 72 18 93/58 L 97 02/13/17 03:51 02/13/17 03:51 02/13/17 03:51 02/13/17 03:51 02/12/17 06:00 Intake and Output: 02/13/17 02/13/17 06:59 18:59 Intake Total 325 Balance 325 - Medications Medications: Current Medications Acetaminophen (Tylenol 325mg Tab) 650 mg PO Q6H PRN PRN Reason: Fever >100.4 F Pantoprazole Sodium (Protonix 40mg Ivpb) 40 mg in 100 mls @ 20 mls/hr IVPB .Q5H [facility] Last Admin: 02/13/17 02:03 Dose: 20 mls/hr Sodium Chloride (Sodium Chloride 0.9%) 1,000 mls @ 150 mls/hr IV .Q6H40M [facility] Last Admin: 02/12/17 21:30 Dose: 150 mls/hr Potassium Chloride (Potassium Chloride 10 Meq/100 Ml) 10 meq in 100 mls @ 100 mls/hr IVPB Q2H REAL Stop: 02/13/17 12:14 Tramadol HCl (Ultram) 50 mg PO Q6 PRN PRN Reason: Pain, moderate (4-7) Last Admin: 02/13/17 05:30 Dose: 50 mg - Labs Labs: 02/13/17 05:30 02/13/17 05:30 PT 10.9 Seconds (9.9-11.8) 02/12/17 06:30 INR 1.01 (0.93-1.08) 02/12/17 06:30 APTT 25.0 Seconds (23.7-30.8) 02/11/17 20:31 - Constitutional Appears: Non-toxic, No Acute Distress - Head Exam Head Exam: ATRAUMATIC, NORMOCEPHALIC - Eye Exam Eye Exam: EOMI, PERRL - ENT Exam ENT Exam: Mucous Membranes Moist - Neck Exam Neck Exam: Full ROM, Normal Inspection - Respiratory Exam Respiratory Exam: Clear to Ausculation Bilateral. absent: Rales, Rhonchi, Wheezes - Cardiovascular Exam Cardiovascular Exam: REGULAR RHYTHM, +S1, +S2 - GI/Abdominal Exam GI & Abdominal Exam: Soft. absent: Distended, Firm, Guarding, Tenderness - Extremities Exam Extremities Exam: Full ROM. 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 Patient is hemodynamically stable. EGD was done this morning which did not reveal gastric or duodenal ulcers. Ultimately the source of patient's bleeding is still not evident. GI Bleed - EGD did not reveal upper source. patient will require colonoscopy tomorrow. - continue protonix gtt - continue IVF - GI following - NPO for now Hx chronic back pain - tramadol 50gm PO q6hr PPX - on protonix gtt - SCD's <Allegra Mullins B - Last Filed: 02/13/17 16:25> Objective - Vital Signs/Intake and Output Vital Signs (last 24 hours): Temp Pulse Resp BP Pulse Ox 99.2 F 60 20 124/88 100 02/13/17 12:04 02/13/17 12:04 02/13/17 12:04 02/13/17 12:02/13/17 10:28 - Medications Medications: Current Medications Acetaminophen (Tylenol 325mg Tab) 650 mg PO Q6H PRN PRN Reason: Fever >100.4 F Pantoprazole Sodium (Protonix 40mg Ivpb) 40 mg in 100 mls @ 20 mls/hr IVPB .Q5H [facility] Last Admin: 02/13/17 13:17 Dose: 20 mls/hr Sodium Chloride (Sodium Chloride 0.9%) 1,000 mls @ 150 mls/hr IV .Q6H40M [facility] Last Admin: 02/12/17 21:30 Dose: 150 mls/hr Lactated Ringer's (Lactated Ringer's) 1,000 mls @ 75 mls/hr IV .[id number] [facility] Last Admin: 02/13/17 14:41 Dose: 75 mls/hr Tramadol HCl (Ultram) 50 mg PO Q6 PRN PRN Reason: Pain, moderate (4-7) Last Admin: 02/13/17 14:44 Dose: 50 mg - Labs Labs: PT 10.9 Seconds (9.9-11.8) 02/12/17 06:30 INR 1.01 (0.93-1.08) 02/12/17 06:30 APTT 25.0 Seconds (23.7-30.8) 02/11/17 20:31 Attending/Attestation - Attestation I have personally seen and examined this patient.: Yes I have fully participated in the care of the patient.: Yes I have reviewed all pertinent clinical information, including history, physical exam and plan: Yes Notes (Text): I have seen and examined the patient at bedside. Agree with the above note with the following additions/ exceptions: Briefly this is 41 year old female with history of chronic NSAID use for chronic back pain who got admitted for evaluation of GI bleeding. Patient had 3 episodes of melanotic stools prior to admission. Yesterday her Hb dropped and she was given 2 units of prbc. Today she feels well and denies any complaints. EGD was done today which did not reveal any GI source. Continue protonix drip. Discussed with Dr Vidal. Possible colonoscopy tomorrow. Upon discharge patient will follow up with PMD of choice. Dr Allegra Mullins
[2017-02-13] MEDS ORDERED: Propofol 10 mg/ml Inj (20 ML) ONE ×2 (09:35→09:46)
[2017-02-13] MEDS ORDERED: Peg-Electrolyte Oral Soln 4L (Golytely) PO ONE (10:07)
[2017-02-13] MEDS ORDERED: Lactated Ringer's 1,000 ML IV SCH (10:50)
[2017-02-13] MEDS: Sodium Chloride 0.9% 1,000 ML IV SCH (18:59)
[2017-02-13 22:20] LABS: HEMATOCRIT 28.4 % (36.0-48.0); MEAN CELL VOLUME 87.1 fL (80.0-105.0); MEAN CORPUSCULAR HEMOGLOBIN 29.4 pg (25.0-35.0); MEAN CORPUSCULAR HGB CONC 33.8 g/dl (31.0-37.0); MEAN PLATELET VOLUME 9.5 fl (7.0-11.0); RED CELL DISTRIBUTION WIDTH 14.6 % (11.5-14.5); WHITE BLOOD COUNT 10.1 10^3/ul (4.5-11.0)
[2017-02-14] MEDS: Pantoprazole 40mg/100ml IVPB 40 MG/100 ML BAG IVPB SCH (05:30)
--- NOTE | 2017-02-14 08:43 | PN ---
DATE: 02/14/2017 I examined the patient this morning. She is a 41-year-old female admitted with complaints of rectal bleeding. As indicated previously, the upper endoscopy yesterday was negative for an acute bleeding source. The patient was subsequently scheduled for a colonoscopy today at 9:30. I reviewed this issue with the patient this morning, as well as the nurse on the floor. The patient indicated that she had significant difficulty with the colon prep and did not finish the whole thing - roughly half, and refused to finish the rest. She has no abdominal pain this morning. No chest pain. Did notice a significant amount of blood during the prep. As of now, the effectiveness of the colon prep is dubious. PHYSICAL EXAMINATION: VITAL SIGNS: I reviewed this patient's vital signs. The physical examination is noncontributory. ASSESSMENT: This is a patient with new onset rectal bleeding, negative upper endoscopy to the level of the second portion of duodenum. Colonoscopy scheduled today. In a review of the case with the nurses, a couple of tap water enemas until clear was suggested. I doubt whether the patient will be agreeable to this. Nursing indicated that the patient has significant anxiety, felt that the colon prep was inducing more bleeding, and at this point in time, it is questionable how effective the residual prep that she had taken is going to be when I put the scope in later on this morning. In addition, I discussed the risks, benefits, and alternatives of the procedure including risks of hemorrhage, perforation, and surgery. The patient was fully cognizant of the procedure and agreed to have the procedure done, and will sign the consent later on this morning when she comes down to same-day surgery. Gucci Vidal DO, PhD cc: [id number] TT: 02/14/2017 08:43:09 Confirmation # [id number] Dictation # [id number] kriss HURLEY
[2017-02-14 09:37] VITALS: O2SAT 100
[2017-02-14] MEDS ORDERED: Propofol 10 mg/ml Inj (20 ML) ONE (09:43)
[2017-02-14] MEDS ORDERED: Sodium Chloride 0.9% 1,000 ML IV SCH (10:15)
--- NOTE | 2017-02-14 12:02 | PN ---
DATE: 02/14/2017 ADDENDUM: I examined the patient early this earlier this morning. Progress note dictated earlier this morning. This is an addendum, which is dictated after her attempted colonoscopy procedure on Friday. The patient had an attempted colonoscopy procedure after a GoLYTELY prep and tap water enemas this morning. The prep was grossly inadequate. Insertion of scope was to the level of the proximal transverse colon near the hepatic flexure. In all segments, there was a significant amount of clots and solid stool. There was no active bleeding noted. It was very hard to clear the mucosa due to the extensive amount of residua noted above. However, the visualized mucosa appeared to be normal. There were some internal hemorrhoids. The scope was withdrawn and the patient tolerated the procedure well and was evaluated afterward in PACU. I reviewed the colonoscopy results with Dr. Mary Alice Mullins, the patient's medical attending. I reviewed the results of the procedure with the patient, who was obviously disturbed that the procedure could not be performed adequately even though she was aware that her compliance with the intake of a colon prep was poor. There is an issue that she may request discharge to go to [facility] over the weekend since that is where she lives. I emphasized to the patient that a repeat colonoscopy attempt after another GoLYTELY prep plus possibly some addition should be accomplished as soon as possible, preferably within 2-3 days, maximum 4. At least, for now, performance of the procedure over the weekend would be problematic and schedule on Friday and Friday will be problematic also. Scheduling is a major issue at the hospital. I spent a substantial amount of time, roughly at least 40 minutes, discussing the procedure results, as well as the prognosis in this particular case. Note that I did explain to her that the area that was not visualized was the ascending colon and that most likely was the area where the bleeding originated. There is also a possibility that there could be a distal small bowel lesion, in which case the colonoscopy will probably be noncontributory. In that particular case, a video capsule may be warranted. If the patient was in the local vicinity of [facility], she was advised to touch base with them as soon as possible over the weekend, possibly, at the latest, on Friday to facilitate her repeat colonoscopy attempt. If the patient does not go home over the weekend, she was advised to come back to the Emergency Room and the procedure could be performed emergently at [facility] after another colon prep attempt. I am not sure what the patient will decide at this point in time. She will discuss the issue with Dr. Allegra Mullins, the medical attending, after she returns to the floor. As indicated above, I expressed the urgency of a repeat colon prep, which is absolutely critical to making a diagnosis in this particular case. Again, this should be accomplished as soon as possible, whether it is here or at [facility] after she returns to the [place]. The final decision will be up to the patient after her discussion with Dr. Mary Alice Mullins later on this morning. At the current time point, the patient is not currently bleeding. A repeat H and H is pending for this morning. The patient currently has no hematemesis, rectal bleeding or abdominal pain. The patient understood the discussion I had with her regarding the urgency of procedure. I reviewed the dietary suggestions I had if she decides return to the [place]. Dietary intake should probably consist only of liquid diet that is either clear or full liquids over the weekend to allow possible healing of whatever lesion bled plus intake of a proton pump inhibitor. This will also facilitate a better colon prep when she has her procedure next week. Gucci Vidal DO, PhD cc: [id number] TT: 02/14/2017 12:01:28 Confirmation # [id number] Dictation # [id number] elder HURLEY
[2017-02-14 12:21] LABS: ADD MANUAL DIFF? NO
[2017-02-14 12:25] LABS: BASO # 0.03 K/mm3 (0.0-2.0); BASO % 0.3 % (0.0-3.0); EOS # 0.3 (0.0-0.7); EOS % 3.4 % (1.5-5.0); GRAN # 5.07 (1.4-6.5); GRAN % 57.6 % (50.0-68.0); HEMATOCRIT 29.1 % (36.0-48.0); LYMPH # 2.9 (1.2-3.4); LYMPH % 33.2 % (22.0-35.0); MEAN CELL VOLUME 87.4 fL (80.0-105.0); MEAN CORPUSCULAR HEMOGLOBIN 29.1 pg (25.0-35.0); MEAN CORPUSCULAR HGB CONC 33.3 g/dl (31.0-37.0); MEAN PLATELET VOLUME 9.6 fl (7.0-11.0); MONO # 0.5 (0.1-0.6); MONO % 5.5 % (1.0-6.0); PLATELET COUNT 226 10^3/uL (120.0-450.0); RED CELL DISTRIBUTION WIDTH 14.6 % (11.5-14.5); WHITE BLOOD COUNT 8.8 10^3/ul (4.5-11.0)
[2017-02-14 12:44] LABS: ALB/GLOB RATIO 1.2 (1.1-1.8); ALKALINE PHOSPHATASE 88 U/L (38-133); ALT/SGPT 30 U/L (7-56); AST/SGOT 25 U/L (15-39); BILIRUBIN,TOTAL 0.4 mg/dL (0.2-1.3); BLOOD UREA NITROGEN 9 mg/dL (7-21); CALCIUM 9.1 mg/dL (8.4-10.5); CARBON DIOXIDE 26 mmol/L (21-33); CHLORIDE 104 mmol/L (98-107); GFR AFRICAN-AMERICAN > 60; GLUCOSE,RANDOM 75 mg/dL (70-110); POTASSIUM 3.5 mmol/L (3.6-5.0); SODIUM 138 mmol/L (132-148); TOTAL PROTEIN 7.2 g/dL (5.8-8.3)
[2017-02-14 12:55] LABS: INR 0.99 (0.93-1.08); PARTIAL THROMBOPLASTIN TIME 25.1 Seconds (23.7-30.8)
[2017-02-14 13:01] VITALS: BP 128/87; PULSE 71; RESP 21; TEMP 98.6
--- NOTE | 2017-02-27 16:05 | CP.PCM.DIS ---
Addendum entered and electronically signed by Jeff Brown DO 03/14/17 15:22 : Hospital Course: 41yo [place]ian F C/O 1d history of BRBPR. The patient states that she has had 3 bloody bowel movements that have filled the toilet bowl prior to arrival. This has never happened to her before. She denies any current SNELL, dizziness, double vision, Cp, Sob, abdominal pain, N/V/D, dysuria/freq/urg, blood per vagina, lower extremity pain/swelling, fevers/chills. The patient had her period one year ago, and has not had it since. Pt had syncopal episode, got IVF, and awakened and felt better. Patient experienced a syncopal episode on the first day of admission. This was associated with position change. Sx of dizziness/lightheadness resolved with fluid bolus. Patient subsequently underwent EGD which did not reveal any source of bleeding. GI recommended colonoscopy however bowel prep was grossly inadequate. The colonoscope was advanced to the transverse colon. To the extent that was visible there was no active bleeding seen. Clots were noted. Repeat colonoscopy was recommended with adequate prep. However the patient desired to follow up with this a [facility] in the [place] where she lives due to scheduling issues. The patient was advised on the importance of following up at [facility]. The patient was instructed by GI to maintain a clear liquid diet and to present immediately to the [facility] ED. Physical Exam: General: No acute distress. HEENT: mucous membranes moist. neck supple. no lymphadenopathy. CV: RRR. Normal S1, S2 Pulm: CTA b/l. no wheeze, rales, rhonchi Abd: soft. NT/ND. normal bowel sounds. Extr: no edema, no cyanosis, peripheral pulses intact. Psych: no anxiety. no depression. Original Note: <Jeff Brown - Last Filed: 03/09/17 16:22> Provider - Provider Date of Admission: 02/13/17 12:24 Attending physician: Allegra Mullins MD Primary care physician: NO PRIMARY CARE PROVIDER Consults: Pulmonary - Dr. Soy Mullins Time Spent in preparation of Discharge (in minutes): 35 Hospital Course - Lab Results Lab Results: Most Recent Lab Values WBC 8.8 10^3/ul (4.5-11.0) 02/14/17 12:15 RBC 3.33 10^6/uL (3.5-6.1) L 02/14/17 12:15 Hgb 9.7 gm/dL (12.0-16.0) L 02/14/17 12:15 Hct 29.1 % (36.0-48.0) L 02/14/17 12:15 MCV 87.4 fL (80.0-105.0) 02/14/17 12:15 MCH 29.1 pg (25.0-35.0) 02/14/17 12:15 MCHC 33.3 g/dl (31.0-37.0) 02/14/17 12:15 RDW 14.6 % (11.5-14.5) H 02/14/17 12:15 Plt Count 226 10^3/uL (120.0-450.0) 02/14/17 12:15 MPV 9.6 fl (7.0-11.0) 02/14/17 12:15 Gran % 57.6 % (50.0-68.0) 02/14/17 12:15 Lymph % (Auto) 33.2 % (22.0-35.0) 02/14/17 12:15 [place] % (Auto) 5.5 % (1.0-6.0) 02/14/17 12:15 Eos % (Auto) 3.4 % (1.5-5.0) 02/14/17 12:15 Baso % (Auto) 0.3 % (0.0-3.0) 02/14/17 12:15 Gran # 5.07 (1.4-6.5) 02/14/17 12:15 Lymph # 2.9 (1.2-3.4) 02/14/17 12:15 [place] # 0.5 (0.1-0.6) 02/14/17 12:15 Eos # 0.3 (0.0-0.7) 02/14/17 12:15 Baso # 0.03 K/mm3 (0.0-2.0) 02/14/17 12:15 PT 10.7 Seconds (9.9-11.8) 02/14/17 12:50 INR 0.99 (0.93-1.08) 02/14/17 12:50 APTT 25.1 Seconds (23.7-30.8) 02/14/17 12:50 Sodium 138 mmol/L (132-148) 02/14/17 12:15 Potassium 3.5 mmol/L (3.6-5.0) L 02/14/17 12:15 Chloride 104 mmol/L (98-107) 02/14/17 12:15 Carbon Dioxide 26 mmol/L (21-33) 02/14/17 12:15 Anion Gap 12 (10-20) 02/14/17 12:15 BUN 9 mg/dL (7-21) 02/14/17 12:15 Creatinine 0.6 mg/dL (0.5-1.4) 02/14/17 12:15 Est GFR ( Amer) > 60 02/14/17 12:15 Est GFR (Non-Af Amer) > 60 02/14/17 12:15 POC Glucose (mg/dL) 101 mg/dL (65-110) 02/12/17 11:39 Random Glucose 75 mg/dL (70-110) 02/14/17 12:15 Calcium 9.1 mg/dL (8.4-10.5) 02/14/17 12:15 Total Bilirubin 0.4 mg/dL (0.2-1.3) 02/14/17 12:15 AST 25 U/L (15-39) 02/14/17 12:15 ALT 30 U/L (7-56) 02/14/17 12:15 Alkaline Phosphatase 88 U/L (38-133) 02/14/17 12:15 Lactate Dehydrogenase 365 U/L (333-699) 02/12/17 10:43 Total Creatine Kinase 74 U/L (35-230) 02/12/17 10:43 Troponin I < 0.01 ng/mL 02/12/17 10:43 Total Protein 7.2 g/dL (5.8-8.3) 02/14/17 12:15 Albumin 3.9 g/dL (3.0-4.8) 02/14/17 12:15 Globulin 3.3 gm/dL 02/14/17 12:15 Albumin/Globulin Ratio 1.2 (1.1-1.8) 02/14/17 12:15 Amylase 116 U/L (35-125) 02/11/17 20:31 Lipase 95 U/L (23-300) 02/11/17 20:31 Urine HCG, Qual Negative (NEGATIVE) 02/13/17 13:00 Blood Type O POSITIVE 02/11/17 20:31 Blood Type Confirm O POSITIVE 02/11/17 21:05 Antibody Screen Negative 02/11/17 20:31 Crossmatch See Detail 02/11/17 20:31 BBK History Checked No verified bt 02/11/17 20:31 Discharge Exam - Head Exam Head Exam: ATRAUMATIC, NORMOCEPHALIC Discharge Plan - Follow Up Plan Condition: FAIR Disposition: AGAINST MEDICAL ADVICE Referrals: PCP,NO [Primary Care Provider] - <Allegra Mullins - Last Filed: 03/17/17 14:36> Provider - Provider Date of Admission: 02/13/17 12:24 Attending physician: Allegra Mullins MD Primary care physician: NO PRIMARY CARE PROVIDER Hospital Course - Lab Results Lab Results: Most Recent Lab Values WBC 8.8 10^3/ul (4.5-11.0) 02/14/17 12:15 RBC 3.33 10^6/uL (3.5-6.1) L 02/14/17 12:15 Hgb 9.7 gm/dL (12.0-16.0) L 02/14/17 12:15 Hct 29.1 % (36.0-48.0) L 02/14/17 12:15 MCV 87.4 fL (80.0-105.0) 02/14/17 12:15 MCH 29.1 pg (25.0-35.0) 02/14/17 12:15 MCHC 33.3 g/dl (31.0-37.0) 02/14/17 12:15 RDW 14.6 % (11.5-14.5) H 02/14/17 12:15 Plt Count 226 10^3/uL (120.0-450.0) 02/14/17 12:15 MPV 9.6 fl (7.0-11.0) 02/14/17 12:15 Gran % 57.6 % (50.0-68.0) 02/14/17 12:15 Lymph % (Auto) 33.2 % (22.0-35.0) 02/14/17 12:15 [place] % (Auto) 5.5 % (1.0-6.0) 02/14/17 12:15 Eos % (Auto) 3.4 % (1.5-5.0) 02/14/17 12:15 Baso % (Auto) 0.3 % (0.0-3.0) 02/14/17 12:15 Gran # 5.07 (1.4-6.5) 02/14/17 12:15 Lymph # 2.9 (1.2-3.4) 02/14/17 12:15 [place] # 0.5 (0.1-0.6) 02/14/17 12:15 Eos # 0.3 (0.0-0.7) 02/14/17 12:15 Baso # 0.03 K/mm3 (0.0-2.0) 02/14/17 12:15 PT 10.7 Seconds (9.9-11.8) 02/14/17 12:50 INR 0.99 (0.93-1.08) 02/14/17 12:50 APTT 25.1 Seconds (23.7-30.8) 02/14/17 12:50 Sodium 138 mmol/L (132-148) 02/14/17 12:15 Potassium 3.5 mmol/L (3.6-5.0) L 02/14/17 12:15 Chloride 104 mmol/L (98-107) 02/14/17 12:15 Carbon Dioxide 26 mmol/L (21-33) 02/14/17 12:15 Anion Gap 12 (10-20) 02/14/17 12:15 BUN 9 mg/dL (7-21) 02/14/17 12:15 Creatinine 0.6 mg/dL (0.5-1.4) 02/14/17 12:15 Est GFR ( Amer) > 60 02/14/17 12:15 Est GFR (Non-Af Amer) > 60 02/14/17 12:15 POC Glucose (mg/dL) 101 mg/dL (65-110) 02/12/17 11:39 Random Glucose 75 mg/dL (70-110) 02/14/17 12:15 Calcium 9.1 mg/dL (8.4-10.5) 02/14/17 12:15 Total Bilirubin 0.4 mg/dL (0.2-1.3) 02/14/17 12:15 AST 25 U/L (15-39) 02/14/17 12:15 ALT 30 U/L (7-56) 02/14/17 12:15 Alkaline Phosphatase 88 U/L (38-133) 02/14/17 12:15 Lactate Dehydrogenase 365 U/L (333-699) 02/12/17 10:43 Total Creatine Kinase 74 U/L (35-230) 02/12/17 10:43 Troponin I < 0.01 ng/mL 02/12/17 10:43 Total Protein 7.2 g/dL (5.8-8.3) 02/14/17 12:15 Albumin 3.9 g/dL (3.0-4.8) 02/14/17 12:15 Globulin 3.3 gm/dL 02/14/17 12:15 Albumin/Globulin Ratio 1.2 (1.1-1.8) 02/14/17 12:15 Amylase 116 U/L (35-125) 02/11/17 20:31 Lipase 95 U/L (23-300) 02/11/17 20:31 Urine HCG, Qual Negative (NEGATIVE) 02/13/17 13:00 Blood Type O POSITIVE 02/11/17 20:31 Blood Type Confirm O POSITIVE 02/11/17 21:05 Antibody Screen Negative 02/11/17 20:31 Crossmatch See Detail 02/11/17 20:31 BBK History Checked No verified bt 02/11/17 20:31 Attending/Attestation - Attestation I have personally seen and examined this patient.: Yes I have fully participated in the care of the patient.: Yes I have reviewed all pertinent clinical information, including history, physical exam and plan: Yes Notes (Text): I have seen and examined the patient at bedside. Agree with the above note with the following additions/ exceptions: Briefly this is 41 year old female with history of chronic NSAID use for chronic back pain who got admitted for evaluation of GI bleeding. Patient had 3 episodes of melanotic stools prior to admission. Yesterday her Hb dropped and she was given 2 units of prbc. Today she feels well and denies any complaints. EGD was done which did not reveal any GI source. Continue protonix drip. Discussed with Dr Vidal. Colonoscopy was done however she was poorly prepped. Patient left AMA. Risks were explained to the patient. Upon discharge patient will follow up with PMD of choice. Dr Allegra Mullins
== END 2017-02-14 16:13 | disposition left against medical advice (07) | DRG 175 ==
LOC: ED 19:48 → ERH 02-12 00:03 → 2RNO 02-12 03:50 → OBSVTOIN 02-13 12:24
PROVIDERS: ADMIT Hospitalist; ATTEND Hospitalist
PROC: 30233N1 Transfusion of Nonautologous Red Blood Cells into Peripheral Vein, Percutaneous Approach (ICD-10-PCS; 2017-02-12)
PROC: 0DJ08ZZ Inspection of Upper Intestinal Tract, Via Natural or Artificial Opening Endoscopic (ICD-10-PCS; principal; 2017-02-13 09:15)
PROC: 0DJD8ZZ Inspection of Lower Intestinal Tract, Via Natural or Artificial Opening Endoscopic (ICD-10-PCS; 2017-02-14)
DX: K62.5 Hemorrhage of anus and rectum (principal); T39.395A Adverse effect of other nonsteroidal anti-inflammatory drugs [NSAID], initial encounter; M41.9 Scoliosis, unspecified; G89.29 Other chronic pain; M54.9 Dorsalgia, unspecified; F41.9 Anxiety disorder, unspecified; K64.8 Other hemorrhoids; K29.70 Gastritis, unspecified, without bleeding; Z98.1 Arthrodesis status; Z88.5 Allergy status to narcotic agent